=== PATIENT | male | born 2000 | race Caucasian/White ===

== ENCOUNTER 2020-03-14 12:11 | Emergency (ER) | payer OTHER ==
[2020-03-14 12:20] VITALS: BP 118/58; PULSE 85; TEMP 98.5; BMI 23.3
--- OUTSIDE RECORDS SUMMARY | 2020-03-14 12:29 | XMS ---
:2000 Author Organization [facility] Support Name Relationship Address Phone [place] [address] ZACH [employer] MOTHER [address], [place] [address] Re-disclosure Warning The records that you are about to access may contain information from federally- assisted alcohol or drug abuse programs. If such information is present, then the following federally mandated warning applies: This information has been disclosed to you from records protected by federal confidentiality rules (42 CFR part 2). The federal rules prohibit you from making any further disclosure of this information unless further disclosure is expressly permitted by the written consent of the person to whom it pertains or as otherwise permitted by 42 CFR part 2. A general authorization for the release of medical or other information is NOT sufficient for this purpose. The Federal rules restrict any use of the information to criminally investigate or prosecute any alcohol or drug abuse patient.The records that you are about to access may contain highly sensitive health information, the redisclosure of which is protected by Article 27-F of the [facility] Public Health law. If you continue you may haveaccess to information: Regarding HIV / AIDS; Provided by facilities licensed or operated by the [facility] Office of Mental Health; or Provided by the [facility] Office for People With Developmental Disabilities. If such information is present, then the following [facility] mandated warning applies: This information has been disclosed to you from confidential records which are protected by state law. State law prohibits you from making any further disclosure of this information without the specific written consent of the person to whom it pertains, or as otherwise permitted by law. Any unauthorized further disclosure in violation of state law may result in a fine or mcc sentence or both. A general authorization for the release of medical or other information is NOT sufficient authorization for further disclosure. Insurance Providers Payer name Policy type Policy ID Covered Covered alliance party's Policy P everette / Coverage alliance party ID relationship to [facility] type [facility] LUCINDA [id number] [address] [place] [address] CAP
--- NOTE | 2020-03-14 12:31 | PDOC ---
History of Present Illness - General Chief Complaint: Penile Drainage Stated Complaint: PENILE IRRITATION Time Seen by Provider: 03/14/20 12:20 History Source: Patient Exam Limitations: No Limitations - History of Present Illness Initial Comments: 03/14/20 12:27 19-year-old male no significant past medical history presented to the ED with penile irritation for 2 days. Patient states that he noticed white discharge around the glans penis underneath his foreskin irritated while retracting his foreskin. Patient states he is not currently sexually active and has had no new sexual partners recently. Pt otherwise denies: fevers, chills, syncope, lightheadedness, dizziness, headaches, neck pain, chest pain, shortness of breath, palpitations, back pain, abdominal pain, nausea, vomiting, diarrhea, constipation. Past History - Medical History Allergies/Adverse Reactions: Allergies Allergy/AdvReac Type Severity Reaction Status Date / Time No Known Allergies Allergy Verified 03/14/20 12:15 Home Medications: Ambulatory Orders Clotrimazole [Itch Relief] 15 gm TP BID #1 cream..g. 03/14/20 - Psycho-Social/Smoking History Smoking History: Never smoked - Substance Abuse Hx (Audit-C & DAST Scrn) How often the patient has a drink containing alcohol: Never Score: In Men: 4 or > Positive; In Women: 3 or > Positive: 0 Screen Result (Pos requires Nsg. Audit-10AR): Negative *Physical Exam - Vital Signs Last Vital Signs Temp Pulse Resp BP Pulse Ox 98.5 F 85 18 118/58 L 99 03/14/20 12:16 03/14/20 12:16 03/14/20 12:16 03/14/20 12:16 03/14/20 12:16 - Physical Exam 03/14/20 12:27 Gen: AAOx 3, no acute distress, comfortable, no signs of respiratory distress CV: RRR no murmurs, gallops, or rubs. CHEST: CTA b/l no wheezing, rales or rhonchi ABD: +BS/ND. no TTP; soft, no rebound, no guarding GENITAL: Non-tender, non-edematous, uncircumcised penis with no discharge/bleeding from meatus however there is irritation and maceration when the foreskin is retracted consistent with balanitis, non-tender, non-edematous b/l descended testes with b/l vertical lies. EXTREMITY: no cyanosis or erythema. 2+ dorsalis pedis, posterior tibial, and radial pulse. No pedal edema; no calf swelling or tenderness SKIN: no rash, warm and dry, no diaphoresis HEME: no purpura or ecchymosis NEURO: normal speech, CN II-XII intact, sensation intact, normal gait, no cerebellar deficits MS: 5/5 strength in all extremities, FROM intact in all extremities. Medical Decision Making - Medical Decision Making 03/14/20 12:28 19-year-old male no past medical history with balanitis Vital signs stable Will discharge with clotmetazole and urology follow-up Pt appears well and is safe and stable for discharge with strict return precautions including signs and symptoms requring immediate return to the ED Supportive care instructions explained and given to pt. Reasons to return emergently to ER explained and given. Importance of follow up with PMD and other specialists as indicated stressed to pt. Pt verbalized understanding of instructions. Pt to follow up with PMD in 2 days. Discharge - Discharge Information Problems reviewed: Yes Clinical Impression/Diagnosis: Balanitis Condition: Stable Disposition: HOME - Additional Discharge Information Prescriptions: Clotrimazole [Itch Relief] 15 gm TP BID #1 cream..g. - Follow up/Referral Referrals: Jean Paul Caban [Primary Care Provider] - Adam Stringer MD [Staff Physician] - - Patient Discharge Instructions Patient Printed Discharge Instructions: DI for Balanitis - Post Discharge Activity
== END 2020-03-14 15:44 | disposition home or self-care (01) ==
LOC: JER 12:11
DX: N48.1 Balanitis (principal)
CPT/HCPCS: 99284-25

== ENCOUNTER 2023-07-01 05:41 | Emergency (ER) | payer OTHER ==
[2023-07-01 05:44] VITALS: BMI 23.3
[2023-07-01] MEDS ORDERED: morphine SULFATE 4 MG/ML VIAL ONE ×2 (05:55→09:39)
[2023-07-01] MEDS: morphine CARPU-JECT 4 MG/1 ML DISP.SYRIN IVPUSH ONE ×2 (06:00→10:10)
[2023-07-01 06:22] LABS: RDW 12.4 % (11.9-15.9)
[2023-07-01 06:25] LABS: EOS % 0.4 % (0-4.5); HEMATOCRIT 41.8 % (35.4-49); HEMOGLOBIN 13.9 GM/dL (11.7-16.9); MCH 34.2 pg (25.7-33.7); MCHC 33.4 g/dl (32.0-35.9); MEAN CELL VOLUME 102.4 fl (80-96); MEAN PLT VOLUME 10.4 fl (7.5-11.1); MONO % 6.5 % (3.8-10.2); NEUT % 79.1 % (42.8-82.8); PLATELET COUNT 168 10^3/uL (134-434); RBC 4.08 M/mm3 (4.00-5.60); WHITE BLOOD COUNT 9.1 K/mm3 (4.0-10.0)
[2023-07-01] MEDS: morphine CARPU-JECT 2 MG/1 ML DISP.SYRIN IVPUSH ONE (06:33)
[2023-07-01 06:38] LABS: INR 1.03 (0.83-1.09); PROTHROMBIN TIME (PATIENT) 11.9 SEC (9.7-13.0)
[2023-07-01 06:41] LABS: ACTIVATED PTT 29.4 SECONDS (25.2-36.5)
[2023-07-01 06:44] LABS: POTASSIUM 4.2 mmol/L (3.5-5.1)
[2023-07-01] MEDS ORDERED: DIPHTH,PERTUSS(ACELL),TET 0.5 ML DISP.SYRIN IM ONE (06:45)
[2023-07-01 06:46] LABS: CALCIUM 9.2 mg/dL (8.5-10.1)
[2023-07-01 06:47] LABS: ALBUMIN 4.5 g/dl (3.4-5.0); BLOOD UREA NITROGEN 11.6 mg/dL (7-18)
[2023-07-01] MEDS: DIPHTH,PERTUSS(ACELL),TET 0.5 ML DISP.SYRIN IM ONE (06:47)
[2023-07-01 06:51] LABS: TOT PROT 7.7 g/dl (6.4-8.2)
[2023-07-01 06:56] LABS: BILIRUBIN,TOTAL 0.7 mg/dL (0.2-1)
[2023-07-01] MEDS ORDERED: AMPICILLIN NA/SULBACTAM NA 1.5 GM VIAL ONE (07:43)
[2023-07-01] MEDS ORDERED: ONDANSETRON 4 MG/2 ML VIAL ONE ×2 (07:51→09:54)
[2023-07-01] MEDS: AMPICILLIN NA/SULBACTAM NA 1.5 GM in SODIUM CHLORIDE 100 ML IVPB ONE (07:59)
[2023-07-01] MEDS: ONDANSETRON 4 MG/2 ML VIAL IVPUSH ONE ×2 (07:59→10:10)
[2023-07-01] MEDS: SODIUM CHLORIDE 1,000 ML IV STA (10:10)
[2023-07-01 11:22] VITALS: BP 129/68; PULSE 63; RESP 19; TEMP 98.2
== END 2023-07-01 11:22 | disposition short-term general hospital (02) ==
LOC: JER 05:41
PROC: 3E03329 Introduction of Other Anti-infective into Peripheral Vein, Percutaneous Approach (ICD-10-PCS; principal; 2023-07-01)
PROC: 3E033GC Introduction of Other Therapeutic Substance into Peripheral Vein, Percutaneous Approach (ICD-10-PCS; 2023-07-01)
PROC: 3E033GC Introduction of Other Therapeutic Substance into Peripheral Vein, Percutaneous Approach (ICD-10-PCS; 2023-07-01)
PROC: 3E033NZ Introduction of Analgesics, Hypnotics, Sedatives into Peripheral Vein, Percutaneous Approach (ICD-10-PCS; 2023-07-01)
PROC: 3E033NZ Introduction of Analgesics, Hypnotics, Sedatives into Peripheral Vein, Percutaneous Approach (ICD-10-PCS; 2023-07-01)
PROC: 3E0337Z Introduction of Electrolytic and Water Balance Substance into Peripheral Vein, Percutaneous Approach (ICD-10-PCS; 2023-07-01)
PROC: 3E0234Z Introduction of Serum, Toxoid and Vaccine into Muscle, Percutaneous Approach (ICD-10-PCS; 2023-07-01)
DX: S02.40CA Maxillary fracture, right side, initial encounter for closed fracture (principal); Y04.0XXA Assault by unarmed brawl or fight, initial encounter; Y92.9 Unspecified place or not applicable; Z20.822 Contact with and (suspected) exposure to COVID-19
CPT/HCPCS: 0241U-QW; 36415; 70450-TC; 70486-TC; 72125-TC; 80053; 80307; 85025; 85610; 85730; 86850; 86900; 86901; 90471; 90715; 96361; 96365; 96375; 96376; 99285-25

== ENCOUNTER 2023-12-09 08:42 | Emergency (ER) | payer OTHER ==
[2023-12-09 08:52] VITALS: BP 118/69; PULSE 91; RESP 20; TEMP 99.3; BMI 22.6
[2023-12-09] MEDS ORDERED: ACETAMINOPHEN INJECTION 100 ML IVPB ONE (09:15)
[2023-12-09] MEDS ORDERED: ONDANSETRON 4 MG/2 ML VIAL ONE (09:16)
[2023-12-09] MEDS ORDERED: FAMOTIDINE 20 MG/50 ML IVPB 20 MG/50 ML MG IVPB ONE (09:16)
[2023-12-09] MEDS: ONDANSETRON 4 MG/2 ML VIAL IVPUSH ONE (09:25)
[2023-12-09] MEDS: SODIUM CHLORIDE 1,000 ML IV STA (09:29)
[2023-12-09] MEDS: ACETAMINOPHEN 1000 MG/100 ML BAG IVPB ONE (09:29)
[2023-12-09 09:53] LABS: BASO % 0.3 % (0-2.0); EOS % 1.4 % (0-4.5); HEMATOCRIT 46.1 % (35.4-49); HEMOGLOBIN 15.7 GM/dL (11.7-16.9); LYMPH % 8.1 % (8-40); MCH 34.2 pg (25.7-33.7); MEAN CELL VOLUME 100.6 fl (80-96); MEAN PLT VOLUME 9.9 fl (7.5-11.1); MONO % 4.9 % (3.8-10.2); NEUT % 85.3 % (42.8-82.8); PLATELET COUNT 124 10^3/uL (134-434); RBC 4.58 M/mm3 (4.00-5.60); RDW 12.2 % (11.9-15.9); WHITE BLOOD COUNT 8.3 K/mm3 (4.0-10.0)
[2023-12-09] MEDS: FAMOTIDINE 20 MG/50 ML IVPB 20 MG/50 ML MG IVPB ONE (10:00)
[2023-12-09 10:07] LABS: POTASSIUM 3.9 mmol/L (3.5-5.1)
[2023-12-09 10:09] LABS: ALBUMIN 4.3 g/dl (3.4-5.0); BLOOD UREA NITROGEN 8.6 mg/dL (7-18); CALCIUM 9.1 mg/dL (8.5-10.1)
[2023-12-09 10:12] LABS: CREATININE 0.9 mg/dL (0.55-1.3)
[2023-12-09 10:14] LABS: BILIRUBIN,TOTAL 1.1 mg/dL (0.2-1); TOT PROT 7.4 g/dl (6.4-8.2)
== END 2023-12-09 11:01 | disposition home or self-care (01) ==
LOC: JER 08:42
PROC: 3E033GC Introduction of Other Therapeutic Substance into Peripheral Vein, Percutaneous Approach (ICD-10-PCS; principal; 2023-12-09)
PROC: 3E033NZ Introduction of Analgesics, Hypnotics, Sedatives into Peripheral Vein, Percutaneous Approach (ICD-10-PCS; 2023-12-09)
PROC: 3E033GC Introduction of Other Therapeutic Substance into Peripheral Vein, Percutaneous Approach (ICD-10-PCS; 2023-12-09)
DX: K52.9 Noninfective gastroenteritis and colitis, unspecified (principal); R11.0 Nausea; R10.9 Unspecified abdominal pain; Z20.822 Contact with and (suspected) exposure to COVID-19
CPT/HCPCS: 0241U-QW; 36415; 80053; 83690; 85025; 99284-25; J0131

== ENCOUNTER 2023-12-10 11:31 | Emergency (ER) | payer OTHER ==
[2023-12-10 11:44] VITALS: BP 128/56; PULSE 63; RESP 18; TEMP 98.8; BMI 22.6
[2023-12-10] MEDS ORDERED: ACETAMINOPHEN INJECTION 100 ML IVPB ONE (12:31)
[2023-12-10] MEDS: ACETAMINOPHEN 1000 MG/100 ML BAG IVPB ONE (12:33)
[2023-12-10 12:38] LABS: MCH 34.2 pg (25.7-33.7); MCHC 34.2 g/dl (32.0-35.9); MEAN CELL VOLUME 100.1 fl (80-96); MEAN PLT VOLUME 9.4 fl (7.5-11.1); PLATELET COUNT 122 10^3/uL (134-434); RDW 12.1 % (11.9-15.9)
[2023-12-10 12:41] LABS: EPI CELLS 8 /uL (0-25.1); HYALINE CASTS 1 /uL (0-3.1); URINE APPEARANCE CLEAR; URINE BACTERIA 2 /uL (0-1359); URINE BILIRUBIN NEGATIVE (NEGATIVE); URINE COLOR DK YELLOW; URINE GLUCOSE (UA) NEGATIVE (NEGATIVE); URINE KETONE TRACE (NEGATIVE); URINE LEUK ESTERASE NEGATIVE (NEGATIVE); URINE NITRITE NEGATIVE (NEGATIVE); URINE PROTEIN 1+ (NEGATIVE); URINE RBC 37 /uL (0-23.9); URINE UROBILINOGEN 0.2 mg/dL (0.2-1.0); URINE WBC 15 /uL (0-25.8)
[2023-12-10 12:57] LABS: POTASSIUM 3.8 mmol/L (3.5-5.1)
[2023-12-10 12:58] LABS: CALCIUM 9.1 mg/dL (8.5-10.1)
[2023-12-10 13:00] LABS: BLOOD UREA NITROGEN 6.8 mg/dL (7-18)
[2023-12-10 13:05] LABS: TOT PROT 7.1 g/dl (6.4-8.2)
[2023-12-10 13:21] LABS: INR 1.1 (0.83-1.09); PROTHROMBIN TIME (PATIENT) 12.6 SEC (9.7-13.0)
[2023-12-10 13:34] LABS: ANISOCYTOSIS 0; HELMET CELLS 0; HOWELL-JOLLY BODIES 0; MACROCYTOSIS 0; OVALOCYTE 0; ROULEAU 0; SICKELED CELLS 0; TARGET CELLS 0; TEAR DROP CELLS 0; TOXIC GRANULATION 0
[2023-12-10] MEDS ORDERED: KETOROLAC TROMETHAMINE 15 MG/ML VIAL ONE (14:42)
[2023-12-10] MEDS: KETOROLAC TROMETHAMINE 15 MG/ML VIAL IM ONE (14:47)
== END 2023-12-10 14:58 | disposition home or self-care (01) ==
LOC: JER 11:31
PROC: 3E033NZ Introduction of Analgesics, Hypnotics, Sedatives into Peripheral Vein, Percutaneous Approach (ICD-10-PCS; principal; 2023-12-10)
PROC: 3E0233Z Introduction of Anti-inflammatory into Muscle, Percutaneous Approach (ICD-10-PCS; 2023-12-10)
DX: R10.9 Unspecified abdominal pain (principal); R19.7 Diarrhea, unspecified
CPT/HCPCS: 36415; 74177-TC; 80053; 81003; 83690; 85025; 85610; 86850; 86900; 86901; 87086; 99285-25; J0131